=== PATIENT | female | born 1940 | race Caucasian/White ===

== ENCOUNTER 2017-01-27 09:51 | Outpatient (CLI) | payer MEDICARE, OTHER | END 2017-01-27 09:52 | disposition critical access hospital (66) | LOC: EMS 09:51 | PROVIDERS: ATTEND Surgery | DX: R41.82 Altered mental status, unspecified (principal) | CPT/HCPCS: A0425; A0427 ==

== ENCOUNTER 2017-01-27 10:06 | Emergency (ER) | payer MEDICARE, OTHER ==
[2017-01-27] MEDS ORDERED: ONDANSETRON 4 MG/2 ML VIAL IVP STA (10:15)
[2017-01-27] MEDS ORDERED: SODIUM CHLORIDE 0.9% 1,000 ML IV ONE (10:15)
--- NOTE | 2017-01-27 10:18 | ED Physician Documentation ---
History of Present Illness - Stated complaint Stated Complaint: ALOC - Chief complaint Chief Complaint: Neuro - Additonal information Additional information: hx from EMS 76 female suffers from fibromyALGIA TAKES OXYCODONE this AM her gave her a dose of a black substance that a friend bought at the marijuana store and she promptly developed AMS and NV no fall or injury Review of Systems Constitutional: denies: Fever Cardiac: denies: Chest pain / pressure Respiratory: denies: Cough GI: reports: Vomiting. denies: Abdominal Pain Neurologic: reports: Confused, Altered mental status Endocrine: denies: Easy bruising / bleeding Immunocompromised: denies: Immunocompromised PD PAST MEDICAL HISTORY - Past Medical History Cardiovascular: None Respiratory: Asthma Neuro: None Endocrine/Autoimmune: None Musculoskeletal: Osteoarthritis, Fibromyalgia - Past Surgical History Past Surgical History: Yes HEENT: Cataracts - Present Medications Home Medications: Ambulatory Orders Medication Instructions Recorded Confirmed Fluticasone Propionate [Flovent 1 inh INH DAILY 05/08/15 01/27/17 Diskus] Fluticasone [Flonase] 1 spray DANNY BID 05/08/15 01/27/17 Hydrochlorothiazide 25 mg PO DAILY 05/08/15 01/27/17 Lisinopril 10 mg PO DAILY 05/08/15 01/27/17 Methocarbamol [Robaxin] 500 mg PO Q6H PRN #25 tablet 05/08/15 01/27/17 Salmeterol Xinafoate [Serevent 1 inhaler ORAL DAILY 05/08/15 01/27/17 Diskus] Zolpidem [Ambien] 5 mg PO DAILY 05/08/15 01/27/17 Ciprofloxacin HCl [Cipro] 500 mg PO BID #14 tablet 05/14/15 01/27/17 oxyCODONE/ACET 5/325 [Percocet 5 1 tab ORAL Q6HR PRN 05/14/15 01/27/17 mg/325 mg] - Allergies Allergies/Adverse Reactions: Allergies Allergy/AdvReac Type Severity Reaction Status Date / Time amoxicillin trihydrate * Allergy Hives Verified 05/14/15 09:22 [From Augmentin] potassium clavulanate * Allergy Hives Verified 05/14/15 09:22 [From Augmentin] - Social History Does the pt smoke?: No Smoking Status: Never smoker Does the pt drink ETOH?: No Does the pt have substance abuse?: No - Immunizations Immunizations are current?: Yes PD ED PE NORMAL - Vitals Vital signs reviewed: Yes - General General: Other (very drowsy, irritable, uncooperative, occ jerking movements) - HEENT HEENT: PERRL (2) - Neck Neck: Supple, no meningeal sign - Cardiac Cardiac: RRR - Respiratory Respiratory: No respiratory distress, Clear bilaterally - Abdomen Abdomen: Soft, Non tender - Derm Derm: Normal color - Neuro Neuro: Other (wekaly moves all ext, wont follow commands or answer questions for better neuro exam). No: Alert and oriented X 3 Results - Vitals Vitals: Vital Signs - 24 hr 01/27/17 01/27/17 01/27/17 10:07 10:50 12:16 Temperature 36.1 C L Heart Rate 89 62 76 Respiratory 18 18 16 Rate Blood Pressure 149/81 H 138/75 H 137/74 H O2 Saturation 95 94 100 Oxygen O2 Source Nasal cannula - EKG (time done) 1047 Rate: Rate (enter#) (62) Rhythm: NSR [place]: Normal Intervals: Normal [place] Ischemia: Non specific changes (diffusely slightly flat T waves) Other comments: Other comments (NSR nl QRS nl QT (reason for getting EKG in tox setting)) - Labs Labs: Laboratory Tests 01/27/17 01/27/17 10:34 10:34 WBC 7.6 RBC 4.22 Hgb 13.1 Hct 38.2 MCV 90.5 MCH 31.1 H MCHC 34.4 RDW 13.1 Plt Count 376 MPV 6.9 L Neut # 4.1 Lymph # 2.6 [place] # 0.7 Eos # 0.1 Baso # 0.0 Absolute Nucleated RBC 0.00 Nucleated RBC % 0.0 Sodium 132 L Potassium 2.8 L Chloride 94 L Carbon Dioxide 27 Anion Gap 11.0 BUN 13 Creatinine 0.9 Estimated GFR (MDRD) 61 L Glucose 137 H Calcium 8.8 Salicylates < 6.0 Acetaminophen < 10 L Ethyl Alcohol < 5.0 PD MEDICAL DECISION MAKING - ED course ED course: family called marijuana store and learned the meds was a combo or marijuana deriv and nurse called poison control who advised sx are as expected for this ingestion and tx was simply supportive care and obs - pt given zofran and observed and got better labs reviewed and fine except low K which was repleted and low Na which is not new Departure - Departure Disposition: 01 Home, Self Care Clinical Impression: Medication reaction Qualifiers: Encounter type: initial encounter Qualified Code(s): T88.7XXA - Unspecified adverse effect of drug or medicament, initial encounter Condition: Good Follow-Up: Suresh Gary MD [Primary Care Provider] - Comments: You suffered an adverse reaction the drug that you took The case was discussed with poison control and no further treatment is needed beyond observing you until the symptoms cleared. Your labs were fine except for low potassium which we replaced - please follow up with your PMD to recheck your potassium next week
[2017-01-27 10:39] LABS: BASOPHILS % (AUTO) 0.6 %; EOSINOPHILS # (AUTO) 0.1 10^3/uL (0.0-0.7); EOSINOPHILS % (AUTO) 0.9 %; HCT - HEMATOCRIT 38.2 % (37.0-47.0); HGB - HEMOGLOBIN 13.1 g/dL (12.0-16.0); LYMPHOCYTES # (AUTO) 2.6 10^3/uL (1.5-3.5); LYMPHOCYTES % (AUTO) 34.3 %; MEAN CORPUSCULAR HEMOGLOBIN 31.1 pg (27.0-31.0); MEAN CORPUSCULAR HGB CONC 34.4 g/dL (32.0-36.0); MEAN CORPUSCULAR VOLUME 90.5 fL (81.0-99.0); MEAN PLATELET VOLUME 6.9 fL (7.9-10.8); MONOCYTES # (AUTO) 0.7 10^3/uL (0.0-1.0); MONOCYTES % (AUTO) 9.7 %; NEUTROPHILS # (AUTO) 4.1 10^3/uL (1.5-6.6); NEUTROPHILS % (AUTO) 54.5 %; RED BLOOD COUNT 4.22 10^6/uL (4.20-5.40); RED CELL DISTRIBUTION WIDTH 13.1 % (12.0-15.0); UNCORRECTED WHITE BLOOD COUNT 7.6 x10^3/uL; WHITE BLOOD COUNT 7.6 x10^3/uL (4.8-10.8)
[2017-01-27 10:53] LABS: ACETAMINOPHEN < 10 ug/mL (10-30); BUN - BLOOD UREA NITROGEN 13 mg/dL (6-20); CALCIUM 8.8 mg/dL (8.5-10.3); CARBON DIOXIDE - CO2 27 mmol/L (21-32); CHLORIDE 94 mmol/L (101-111); CREATININE 0.9 mg/dL (0.4-1.0); GFR - MDRD 61 (>89); GLUCOSE 137 mg/dL (70-100); POTASSIUM 2.8 mmol/L (3.5-5.0); SALICYLATE < 6.0 mg/dL; SODIUM 132 mmol/L (135-145)
[2017-01-27 12:17] VITALS: BP 137/74
[2017-01-27] MEDS ORDERED: POTASSIUM CHLORIDE 20 MEQ TABLET PO STA (12:43)
[2017-01-27] MEDS ORDERED: POTASSIUM BICARB 25 MEQ TABLET PO STA (12:51)
== END 2017-01-27 13:13 | disposition home or self-care (01) ==
LOC: EDUNIT# → ED 10:06
DX: R41.82 Altered mental status, unspecified (principal); T50.995A Adverse effect of other drugs, medicaments and biological substances, initial encounter; Y92.019 Unspecified place in single-family (private) house as the place of occurrence of the external cause; M79.7 Fibromyalgia; M19.90 Unspecified osteoarthritis, unspecified site; J45.909 Unspecified asthma, uncomplicated; E87.6 Hypokalemia
CPT/HCPCS: 36415; 80048; 80307; 85025; 93005; 96361; 96374; 99283; 99284; A9270; G0480; 80306; 80320; 80329; 81001; 81003; 87086

== ENCOUNTER 2017-05-06 05:47 | Outpatient (CLI) | payer MEDICARE, OTHER | END 2017-05-06 05:48 | disposition critical access hospital (66) | LOC: EMS 05:47 | PROVIDERS: ATTEND Surgery | DX: R05 Cough (principal) | CPT/HCPCS: A0425; A0429 ==

== ENCOUNTER 2017-05-06 06:02 | Inpatient (IN) | payer MEDICARE, OTHER ==
[2017-05-06] MEDS ORDERED: DEXAMETHASONE 10 MG/ML VIAL PO STA (06:39)
[2017-05-06] MEDS ORDERED: guaiFENesin/DEXTROMETHORPHAN 10 ML UDC PO STA (06:39)
[2017-05-06] MEDS ORDERED: BENZONATATE 100 MG CAPSULE PO STA (06:39)
[2017-05-06] MEDS ORDERED: ALBUTEROL NEB 2.5 MG/3 ML INH STA (06:39)
--- NOTE | 2017-05-06 06:44 | ED Physician Documentation ---
History of Present Illness - Stated complaint Stated Complaint: COUGH - Chief complaint Chief Complaint: Resp - Additonal information Additional information: hx from pt 76 f has COPD states dx with pna 3 d ago at PMD - pt is having a hard time recalling details - she does not recall if she had a CXR, she does not recall the name of the antibiotic she was started on, she does not recall if she is on oral steroids, she tells me that she is using her albuterol every 4 hr but her last use was last night states her SO will be arriving with more info to ER BIBA for cough and SOA maybe a fever no NV no leg edema Review of Systems Constitutional: reports: Fatigue. denies: Fever Throat: denies: Sore throat Cardiac: denies: Chest pain / pressure Respiratory: reports: Dyspnea, Cough GI: denies: Abdominal Pain, Nausea, Vomiting Musculoskeletal: denies: Extremity swelling Neurologic: denies: Generalized weakness Endocrine: denies: Easy bruising / bleeding Immunocompromised: denies: Immunocompromised PD PAST MEDICAL HISTORY - Past Medical History Cardiovascular: None Respiratory: Asthma Neuro: None Endocrine/Autoimmune: None Musculoskeletal: Osteoarthritis, Fibromyalgia - Past Surgical History Past Surgical History: Yes HEENT: Cataracts - Present Medications Home Medications: Ambulatory Orders Medication Instructions Recorded Confirmed Fluticasone [Flonase] 2 spray DANNY DAILY PRN 05/08/15 05/06/17 Salmeterol Xinafoate [Serevent 1 puffs INH DAILY 05/08/15 05/06/17 Diskus] oxyCODONE/ACET 5/325 [Percocet 5 1 tab ORAL Q6HR PRN 05/14/15 05/06/17 mg/325 mg] Albuterol Sulfate [Proair Hfa 2 puffs INH Q4H PRN 05/06/17 05/06/17 Inhaler] Esomeprazole Magnesium [Nexium] 20 mg PO QDAC 05/06/17 05/06/17 Felodipine [Felodipine ER] 5 mg PO DAILY 05/06/17 05/06/17 Fluticasone 220 Mcg [Flovent] 2 puffs INH BID 05/06/17 05/06/17 Losartan Potassium [Losartan 100 mg PO DAILY 05/06/17 05/06/17 Potassium] Montelukast Sodium 10 mg PO QPM 05/06/17 05/06/17 hydroCHLOROthiazide [Hydrodiuril] 25 mg PO DAILY 05/06/17 05/06/17 - Allergies Allergies/Adverse Reactions: Allergies Allergy/AdvReac Type Severity Reaction Status Date / Time amoxicillin trihydrate * Allergy Hives Verified 05/06/17 06:09 [From Augmentin] potassium clavulanate * Allergy Hives Verified 05/06/17 06:09 [From Augmentin] codeine AdvReac Intermediate Nausea Verified 05/06/17 17:26 - Social History Does the pt smoke?: No Smoking Status: Never smoker Does the pt drink ETOH?: No Does the pt have substance abuse?: No - Immunizations Immunizations are current?: Yes PD ED PE NORMAL - Vitals Vital signs reviewed: Yes - General General: Alert and oriented X 3 - Neck Neck: Supple, no meningeal sign - Cardiac Cardiac: RRR - Respiratory Respiratory: Other (incessant coarse deep wet cough, rachael wheeze, sat 89% on 2 L with coughing spells, 93% otherwise) - Abdomen Abdomen: Soft, Non tender - Back Back: No CVA TTP - Derm Derm: Normal color - Extremities Extremities: No edema, No calf tenderness / cord Results - Vitals Vitals: Vital Signs - 24 hr 05/06/17 05/06/17 05/06/17 06:04 07:05 08:17 Temperature 37.3 C Heart Rate 79 81 86 Respiratory 20 26 H 24 Rate Blood Pressure 139/65 H 118/58 L O2 Saturation 91 L 92 05/06/17 05/06/17 05/06/17 08:54 09:30 10:08 Temperature Heart Rate 94 77 105 H Respiratory 20 22 Rate Blood Pressure 127/66 O2 Saturation 93 98 05/06/17 12:13 Temperature 36.4 C L Heart Rate 79 Respiratory 20 Rate Blood Pressure 130/65 O2 Saturation 90 L Oxygen O2 Source Room air Oxygen Flow Rate 2 - Labs Labs: Laboratory Tests 05/06/17 05/06/17 05/06/17 09:04 09:04 09:10 WBC 6.3 RBC 4.15 L Hgb 13.0 Hct 37.0 MCV 89.0 MCH 31.4 H MCHC 35.3 RDW 13.4 Plt Count 238 MPV 6.9 L Neut # 5.6 Lymph # 0.4 L [place] # 0.3 Eos # 0.0 Baso # 0.0 Absolute Nucleated RBC 0.01 Nucleated RBC % 0.1 Bld Gas Analysis Time 0910 Sample Site RIGHT RADIAL ABG pH 7.49 H ABG pCO2 38 ABG pO2 94 ABG HCO3 28.2 H ABG Total CO2 29.3 H ABG O2 Saturation 97 ABG Base Excess 4.7 H [place] Test POSITIVE O2 Delivery Device NASAL CANNULA O2 Liters/Min 3.50 Sodium 123 L Potassium 2.9 L Chloride 86 L Carbon Dioxide 26 Anion Gap 11.0 BUN 18 Creatinine 1.1 H Estimated GFR (MDRD) 48 L Glucose 122 H Calcium 8.5 Influenza A (Rapid) Influenza B (Rapid) Influenza Types A,B Ag 05/06/17 10:10 WBC RBC Hgb Hct MCV MCH MCHC RDW Plt Count MPV Neut # Lymph # [place] # Eos # Baso # Absolute Nucleated RBC Nucleated RBC % Bld Gas Analysis Time Sample Site ABG pH ABG pCO2 ABG pO2 ABG HCO3 ABG Total CO2 ABG O2 Saturation ABG Base Excess [place] Test O2 Delivery Device O2 Liters/Min Sodium Potassium Chloride Carbon Dioxide Anion Gap BUN Creatinine Estimated GFR (MDRD) Glucose Calcium Influenza A (Rapid) Negative Influenza B (Rapid) POSITIVE H Influenza Types A,B Ag + H - Rads (name of study) CXR Radiology: See rad report (linear LLL opacity unchnaged from prior c/w scarring or atelectasis and not pna) PD MEDICAL DECISION MAKING - ED course ED course: despite 3 nebs and steroids pt still hypoxic even at rest and still tight and wheezy SO is here - she is on zmax, she was not on outpt steroids rec admit t is reluctant will try another triple neb pt seems confused - will check PCO2 added on baseline labs for anticipated admit - K low and repleted - Na low - could be 2/2 lung dz but new from Dec and with AMS concerning still wheezing and hypoxic after 6 nebs will admit paged hospitalist at 11 AM Departure - Departure Disposition: 66 [facility] DC/Xfer Clinical Impression: Hypoxia, Bronchitis, Hyponatremia, Hypokalemia COPD (chronic obstructive pulmonary disease) Qualifiers: COPD type: COPD with acute exacerbation Qualified Code(s): J44.1 - Chronic obstructive pulmonary disease with (acute) exacerbation Condition: Fair Discharge Date/Time: 05/06/17 12:50
[2017-05-06] MEDS ORDERED: CHERRY SYRUP 10 ML UDC PO ONE (06:52)
--- NOTE | 2017-05-06 07:19 | XRAY Report ---
EXAM: CHEST RADIOGRAPHY EXAM DATE: 05/06/2017 07:03 AM. CLINICAL HISTORY: COUGH. COMPARISON: 02/17/2016. TECHNIQUE: 2 views. FINDINGS: Lungs/Pleura: Linear left lower lobe opacity again seen. No vascular congestion or consolidation. No pneumothorax. No pleural effusions. Mediastinum: Heart size upper normal. Aorta is tortuous. Aortic atherosclerosis. Other: Degenerative changes of the thoracic spine. IMPRESSION: 1. Linear left lower lobe opacity favoring scar/atelectasis without significant change compared to . 2. No new acute disease. [facility] Referring Provider Line: [phone] SITE ID: [id number]
[2017-05-06 09:09] LABS: BASOPHILS % (AUTO) 0.2 %; LYMPHOCYTES # (AUTO) 0.4 10^3/uL (1.5-3.5); LYMPHOCYTES % (AUTO) 6.1 %; MEAN CORPUSCULAR HEMOGLOBIN 31.4 pg (27.0-31.0); MEAN CORPUSCULAR HGB CONC 35.3 g/dL (32.0-36.0); MEAN PLATELET VOLUME 6.9 fL (7.9-10.8); MONOCYTES # (AUTO) 0.3 10^3/uL (0.0-1.0); MONOCYTES % (AUTO) 4.1 %; NEUTROPHILS # (AUTO) 5.6 10^3/uL (1.5-6.6); NEUTROPHILS % (AUTO) 89.6 %; PLT - PLATELET COUNT 238 10^3/uL (130-450); RED BLOOD COUNT 4.15 10^6/uL (4.20-5.40); RED CELL DISTRIBUTION WIDTH 13.4 % (12.0-15.0); WHITE BLOOD COUNT 6.3 x10^3/uL (4.8-10.8)
[2017-05-06 09:17] LABS: CALCIUM 8.5 mg/dL (8.5-10.3); CREATININE 1.1 mg/dL (0.4-1.0)
[2017-05-06 09:21] LABS: ABG BASE EXCESS 4.7 mmol/L (-2.0-3.0); ABG HCO3 28.2 mmol/L (22.0-26.0); ABG OXYGEN SATURATION 97 % (94-98); ABG PCO2 38 mmHg (34-45); ABG PH 7.49 (7.35-7.45); ABG PO2 94 mmHg (80-100); ABG TCO2 29.3 MMOL/L (21.0-29.0); ALLEN TEST POSITIVE
[2017-05-06] MEDS ORDERED: LEVALBUTEROL 1.25 MG/3 ML NEB INH STA (09:23)
[2017-05-06] MEDS ORDERED: POTASSIUM CHLORIDE 20 MEQ TABLET PO STA (10:10)
[2017-05-06] MEDS: ALBUTEROL NEB 2.5 MG/3 ML INH STA ×2 (10:46→14:37)
[2017-05-06] MEDS ORDERED: HYDROmorphone 1 MG/ML CARPUJECT IVP PRN (12:20)
[2017-05-06] MEDS ORDERED: TEMAZEPAM 15 MG CAPSULE PO PRN (12:20)
[2017-05-06] MEDS ORDERED: SODIUM CHLORIDE FLUSH 0.9% 10 ML SYRINGE IVP PRN (12:20)
[2017-05-06] MEDS ORDERED: MORPHINE 2 MG/ML SYRINGE IVP PRN (12:20)
[2017-05-06] MEDS ORDERED: ACETAMINOPHEN 325 MG TABLET PO PRN (12:20)
[2017-05-06] MEDS ORDERED: ONDANSETRON 4 MG/2 ML VIAL IVP PRN (12:20)
[2017-05-06] MEDS ORDERED: FLUTICASONE NASAL SPRAY NAS PRN (12:26)
[2017-05-06] MEDS ORDERED: oxyCOD/ACETAMIN 5 MG/325 MG TABLET PO PRN (12:26)
[2017-05-06] MEDS ORDERED: guaiFENesin/CODEINE 5 ML UDC PO PRN (12:34)
[2017-05-06] MEDS ORDERED: LEVALBUTEROL 1.25 MG/3 ML NEB INH PRN (12:46)
[2017-05-06] MEDS ORDERED: LEVALBUTEROL 1.25 MG/3 ML NEB INH SCH (13:00)
[2017-05-06] MEDS: BUDESONIDE 0.5 MG/2 ML NEB INH SCH ×2 (13:24→20:31)
[2017-05-06] MEDS: LEVALBUTEROL 1.25 MG/3 ML NEB INH SCH ×3 (13:24→20:31)
[2017-05-06] MEDS: guaiFENesin 600 MG TABLET PO SCH ×2 (14:03→21:10)
[2017-05-06] MEDS: OSELTAMIVIR 75 MG CAPSULE PO SCH ×2 (14:04→21:10)
[2017-05-06] MEDS: methylPREDNISolone SUCCINATE 40 MG/ML VIAL IVP SCH ×2 (14:05→21:13)
[2017-05-06] MEDS: SODIUM CHLORIDE 0.9% 1,000 ML IV SCH (14:09)
--- NOTE | 2017-05-06 16:53 | HISTORY & PHYSICAL EXAMINATION ---
DATE OF SERVICE: 05/06/2017 Physician: Namrata Benavides MD HISTORY OF PRESENT ILLNESS: This is a 76-year-old white female with a history of hypertension, fibromyalgia, and chronic obstructive disease/asthma. The patient also gets frequent sinusitis, according to the daughter. The patient is admitted with 3 to 4-day history of a wet but nonproductive cough, shortness of breath, and fever after returning from a trip to [place]. She traveled with her , and the also had a mild URI plus diarrhea. The patient came to the emergency room because of severe shortness of breath. The patient has been using her inhaler every 4 hours for a day. She forgot to tell the emergency room that she also has had diarrhea for a few days. In the emergency room, she received oral steroids and 6 nebulizer treatments and continued to be short of breath at rest, wheezing and was "tight ", and is being admitted for respiratory distress. PAST MEDICAL HISTORY: Chronic obstructive pulmonary disease/asthma on several inhalers, but not on home oxygen; history of frequent sinusitis, history of fibromyalgia, and hypertension. REVIEW OF SYSTEMS: A comprehensive review of systems was performed, and the pertinent positives are above. In addition, the daughter states there was approximately 1 year where she had recurrent syncope, but this is now resolved. ALLERGIES 1. AMOXICILLIN. 2. POTASSIUM CLAVULANATE. MEDICATIONS 1. Nexium 20 mg p.o. daily. 2. ProAir inhaler every 4 hours p.r.n. 3. Flovent 2 puffs b.i.d. 4. Serevent Diskus 1 puff daily. 5. Flonase nasal spray daily p.r.n. 6. Percocet q.6 hours p.r.n. fibromyalgia pain. 7. HCTZ 25 mg daily. 8. Montelukast 10 mg p.o. every evening. 9. Losartan 100 mg p.o. daily. 10. Felodipine 5 mg p.o. daily. SOCIAL HISTORY: The patient is a nonsmoker, who quit 40 years ago, drinks rare alcohol, uses no illicit drugs. She lives at home with her . 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 FAMILY HISTORY: No inherited diseases. PHYSICAL EXAMINATION GENERAL: She is in mild respiratory distress. In the emergency room, she was in severe respiratory distress with a respiratory rate of 26. Blood pressure 139/65, pulse of 79-100 in sinus rhythm, afebrile, and room air saturation 91%. HEENT: Exam reveals hoarseness of her voice. Moist oral mucosa. NECK: No JVD or carotid bruits. LUNGS: Diffusely diminished breath sounds with prolonged expiratory phase and scattered wheezes, no rales. HEART: Sounds distant. ABDOMEN: Soft, positive bowel sounds. EXTREMITIES: No clubbing, cyanosis, or edema. NEUROLOGIC: Intact grossly. LABORATORY/DATA Sodium 123, potassium 2.9, BUN 18, creatinine 1.1. No liver tests or calcium or magnesium were done. White blood count 6.3 with no left shift, hemoglobin 13, platelet count normal at 238. No INR was done. Serology shows positive influenza B. Blood gas had a pH of 7.49, pCO2 of 38, pO2 of 94. Chest x-ray showed left base atelectasis or scar and no acute disease and heart size is upper limits of normal. EKG: Normal sinus rhythm at a rate of 80, poor R-wave progression, diffusely borderline flat T waves. There is no old EKG for comparison. IMPRESSION/DIAGNOSES 1. Chronic obstructive pulmonary disease exacerbation. 2. Acute bronchitis. 3. Influenza B. 4. Diarrhea after a trip to [place]. 5. Tachycardia after albuterol, which has now improved. 6. Hypertension. 7. Hyponatremia. 8. Confusion. 9. Fibromyalgia. PLAN 1. Admit the patient on telemetry. 2. Obtain sputum cultures and blood cultures given the fever at home. 3. Start the patient on empiric antibiotics to cover bronchitis and especially from a sinus source; therefore, Zithromax and Clindamycin will be started. 4. Start Tamiflu for the influenza and follow her liver tests. 5. Begin IV steroids, nebulizers with Xopenex and Budesonide, use Mucinex and Robitussin treatments. 6. Continue with her blood pressure medications, but stop the HCTZ; and begin low-dose normal saline to correct the hyponatremia. Replace her potassium. 7. Begin clear liquid diet and advance if the diarrhea will tolerate. Culture of the diarrhea, and begin Imodium or Florastor if there are no bacterial growths or C. diff. CODE STATUS: DNR. DEEP VENOUS THROMBOSIS PROPHYLAXIS: Lovenox. ATTESTATION: The patient is expected to be discharged or transferred to another facility within 96 hours: Yes. TD: 05/06/2017 16:30 DANNI
[2017-05-06] MEDS: SODIUM CHLORIDE FLUSH 0.9% 10 ML SYRINGE IVP SCH (19:57)
[2017-05-06] MEDS: CLINDAMYCIN 600 MG/50 ML 50 ML IV SCH (19:57)
[2017-05-06] MEDS: AZITHROMYCIN INJ 500 MG in SODIUM CHLORIDE 0.9% 250 ML IV SCH (21:10)
[2017-05-06] MEDS: POTASSIUM CHLOR 10 MEQ/100 ML 10 MEQ/100 ML BAG IV SCH (22:35)
[2017-05-07] MEDS: POTASSIUM CHLOR 10 MEQ/100 ML 10 MEQ/100 ML BAG IV SCH ×2 (00:35→09:27)
[2017-05-07] MEDS ORDERED: POTASSIUM CHLORIDE 20 MEQ TABLET PO SCH (01:00)
[2017-05-07] MEDS: SODIUM CHLORIDE FLUSH 0.9% 10 ML SYRINGE IVP SCH ×4 (01:55→21:24)
[2017-05-07] MEDS: CLINDAMYCIN 600 MG/50 ML 50 ML IV SCH ×3 (02:14→17:35)
[2017-05-07 05:45] LABS: HGB - HEMOGLOBIN 11.9 g/dL (12.0-16.0); LYMPHOCYTES # (AUTO) 0.6 10^3/uL (1.5-3.5); LYMPHOCYTES % (AUTO) 8.1 %; MEAN CORPUSCULAR HEMOGLOBIN 30.2 pg (27.0-31.0); MEAN CORPUSCULAR HGB CONC 33.6 g/dL (32.0-36.0); MEAN CORPUSCULAR VOLUME 89.9 fL (81.0-99.0); MEAN PLATELET VOLUME 7.1 fL (7.9-10.8); MONOCYTES # (AUTO) 0.7 10^3/uL (0.0-1.0); MONOCYTES % (AUTO) 9.3 %; NEUTROPHILS # (AUTO) 6.2 10^3/uL (1.5-6.6); NEUTROPHILS % (AUTO) 82.6 %; PLT - PLATELET COUNT 225 10^3/uL (130-450); RED BLOOD COUNT 3.94 10^6/uL (4.20-5.40); RED CELL DISTRIBUTION WIDTH 13.5 % (12.0-15.0); WHITE BLOOD COUNT 7.5 x10^3/uL (4.8-10.8)
[2017-05-07 05:56] LABS: ALBUMIN 3.3 g/dL (3.2-5.5); ALBUMIN/GLOBULIN RATIO 1.2 (1.0-2.2); BILIRUBIN,TOTAL 0.5 mg/dL (0.2-1.0); CALCIUM 8.3 mg/dL (8.5-10.3); CREATININE 0.7 mg/dL (0.4-1.0); TOTAL PROTEIN 6.1 g/dL (6.7-8.2)
[2017-05-07] MEDS: SODIUM CHLORIDE 0.9% 1,000 ML IV SCH ×2 (06:10→07:22)
[2017-05-07] MEDS: methylPREDNISolone SUCCINATE 40 MG/ML VIAL IVP SCH ×3 (06:20→21:24)
[2017-05-07] MEDS: PANTOPRAZOLE 40 MG TABLET PO SCH (06:21)
[2017-05-07] MEDS: LEVALBUTEROL 1.25 MG/3 ML NEB INH SCH ×3 (07:25→19:15)
[2017-05-07] MEDS: BUDESONIDE 0.5 MG/2 ML NEB INH SCH ×2 (07:25→19:15)
--- NOTE | 2017-05-07 07:32 | XRAY Preliminary Report ---
Exam: XR CHEST 1 VIEW X-RAY IMPRESSION: Suboptimal inspiratory effort. No pneumonia, CHF further demonstrated cause for shortness of breath. [facility] SITE ID: [id number]
--- NOTE | 2017-05-07 07:37 | XRAY Report ---
EXAM: CHEST RADIOGRAPHY, PORTABLE ONE VIEW EXAM DATE: 05/07/2017 06:37 AM. CLINICAL HISTORY: 76-year-old female with shortness of breath. COMPARISON: Two-view chest 05/06/2017 and previous. TECHNIQUE: 0627 hour AP upright portable view. FINDINGS: Lungs/Pleura: No focal opacities evident. No pleural effusion. No pneumothorax. Decreased inspiratory effort from previous study. Mediastinum: Within exam limitations, the cardiomediastinal contour is normal. No pulmonary vascular congestion or adenopathy. Other: Trachea is midline. Osseous structures are unremarkable. Moderate elevation right hemidiaphragm, chronic and stable. IMPRESSION: Suboptimal inspiratory effort. No pneumonia, CHF or demonstrated cause for shortness of b reath. [facility] Referring Provider Line: [phone] SITE ID: [id number]
[2017-05-07] MEDS: FELODIPINE ER 2.5 MG TABLET PO SCH (08:56)
[2017-05-07] MEDS: OSELTAMIVIR 75 MG CAPSULE PO SCH ×2 (08:57→21:25)
[2017-05-07] MEDS: LOSARTAN 50 MG TABLET PO SCH (08:57)
[2017-05-07] MEDS: POTASSIUM CHLORIDE 20 MEQ TABLET PO SCH ×2 (08:57→21:25)
[2017-05-07] MEDS: ENOXAPARIN 40 MG/0.4 ML SYRINGE SUBQ SCH (08:58)
[2017-05-07] MEDS: guaiFENesin 600 MG TABLET PO SCH ×2 (08:58→21:25)
[2017-05-07] MEDS: POLYETHYLENE GLYCOL 3350 17 GM PACKET PO SCH (08:59)
[2017-05-07] MEDS ORDERED: FAMOTIDINE 20 MG TABLET PO SCH (09:00)
--- NOTE | 2017-05-07 13:02 | PROVIDER PROGRESS NOTE ---
Assessment/Plan - Problem List (1) Asthmatic bronchitis with acute exacerbation Qualifiers: Asthma severity: unspecified severity Assessment/Plan: The patient states she was never told she has COPD. She describes undergoing PFTs 20 years ago and was told she had Asthma. Her cough and wheezing are better, she is not SOB at rest and c/o shakiness from the nebs. Will decrease Xopenex to bid, continue steroid nebs and iv, tomorrow transition to Medrol dose Star for DCh. (2) Travelers' diarrhea Assessment/Plan: Slightly less liquid BMs, but still nauseated and anorexic. Will advance diet from clears when possible. Awaiting stool eval for C diff and bacterial cultures. Pt no longer hypokalemic, due to stool fluid losses, after replacement. (3) Hyponatremia Assessment/Plan: Improved and Pt no longer confused. She was able to give me clear answers about her past PFTs and her daughter's career, etc. (4) Influenza B Assessment/Plan: Continue Tamiflu for a 7 day course, watching LFTs (no LFTs done at admission, til CMP this am). Probable DCh tomorrow. - Current Meds Current Meds: Current Medications Generic Name Dose Route Start Last Admin Trade Name Freq PRN Reason Stop Dose Admin Budesonide 0.5 mg 05/06/17 13:00 05/07/17 07:25 Pulmicort INH 0.5 mg RTBID KATIE Administration Enoxaparin Sodium 40 mg 05/07/17 09:00 05/07/17 08:58 Lovenox SUBQ 40 mg DAILY KATIE Administration Felodipine 5 mg 05/07/17 09:00 05/07/17 08:56 Plendil PO 5 mg DAILY KATIE Administration Guaifenesin 600 mg 05/06/17 13:00 05/07/17 08:58 Mucinex PO 600 mg BID KATIE Administration Sodium Chloride 1,000 mls @ 60 mls/hr 05/06/17 13:00 05/07/17 07:22 Normal Saline 0.9% IV 60 mls/hr .[id number] KATIE Administration Azithromycin 500 mg/ Sodium 250 mls @ 250 mls/hr 05/06/17 17:00 05/06/17 22: 10 Chloride IV Infused Q24H KATIE Infusion Clindamycin Phosphate 50 mls @ 100 mls/hr 05/06/17 18:00 05/07/17 11:03 Cleocin 600 Mg/50 Ml IV Infused Q8H KATIE Infusion Losartan Potassium 100 mg 05/07/17 09:00 05/07/17 08:57 Cozaar PO 100 mg DAILY KATIE Administration Methylprednisolone 40 mg 05/06/17 14:00 05/07/17 06:20 Solu-Medrol (40mg Vial) IVP 40 mg TID KATIE Administration Oseltamivir Phosphate 75 mg 05/06/17 12:32 05/07/17 08:57 Tamiflu PO 75 mg BID KATIE Administration Pantoprazole Sodium 40 mg 05/07/17 07:00 05/07/17 06:21 Protonix PO 40 mg QDAC KATIE Administration Polyethylene Glycol 17 gm 05/07/17 09:00 05/07/17 08:59 Miralax PO Not Given DAILY KATIE Potassium Chloride 20 meq 05/07/17 09:00 05/07/17 08:57 K-Dur PO 20 meq BID KATIE Administration Sodium Chloride 10 ml 05/06/17 17:00 05/07/17 09:28 Normal Saline Flush 0.9% IVP Not Given 0100,0900,1700 KATIE - Lab Result Fish Bone Diagrams: 05/07/17 05:25 05/07/17 05:25 - Additional Planning My Orders: My Active Orders 05/06/17 12:26 Fluticasone [Flonase] 2 sprays DANNY DAILY PRN oxyCODONE/ACET 5/325 [Percocet 5 mg/325 mg] 1 tab PO Q6HR PRN 05/06/17 12:32 Oseltamivir [Tamiflu] 75 mg PO BID 05/06/17 12:46 Levalbuterol [Xopenex] 1.25 mg INH Q2H PRN 05/06/17 12:59 Blood Culture [CULTURE, BLOOD #1] [RM] Stat 05/06/17 13:00 Budesonide [Pulmicort] 0.5 mg INH RTBID Sodium Chloride 0.9% [Normal Saline 0.9%] 1,000 ml IV 60 mls/hr guaiFENesin [Mucinex] 600 mg PO BID 05/06/17 13:24 RT [Nebulizer/MDI Tx.] [RC] .BID/ QID/ Q2 PRN 05/06/17 13:42 Blood Culture [CULTURE, BLOOD #2] [RM] Stat 05/06/17 13:58 CUL, RESPIRATORY [RM] Routine 05/06/17 14:00 methylPREDNISolone SUCCINATE [SOLU-Medrol (40MG VIAL)] 40 mg IVP TID 05/06/17 17:00 Azithromycin Inj [Zithromax Inj] 500 mg Sodium Chloride 0.9% [Normal Saline 0.9%] 250 ml IV Q24H 05/06/17 18:00 Clindamycin 600 mg/50 ml [Cleocin 600 mg/50 ml] 50 ml IV Q8H 05/07/17 07:00 Pantoprazole [Protonix] 40 mg PO QDAC 05/07/17 09:00 Felodipine [Plendil] 5 mg PO DAILY Losartan [Cozaar] 100 mg PO DAILY 05/07/17 21:00 Levalbuterol [Xopenex] 1.25 mg INH BID 05/07/17 Breakfast DIET [Clear Liquid Diet] [DIET] Subjective - Subjective Patient Reports: Feeling Better, Diarrhea, Nausea, Other (No SOB, less cough and wheezing.) Objective Vital Signs: Vital Signs - 24 hr 05/06/17 05/06/17 05/06/17 13:00 13:24 15:38 Temperature 36.8 C 36.8 C Heart Rate 86 Heart Rate [ 74 71 Brachial] Respiratory 22 22 20 Rate Blood Pressure 115/67 [Left Brachial artery] Blood Pressure 126/62 [Right Brachial artery] O2 Saturation 94 97 05/06/17 05/06/17 05/06/17 16:38 20:26 20:32 Temperature 37.2 C Heart Rate 80 70 Heart Rate [ 68 Brachial] Respiratory 20 20 20 Rate Blood Pressure 118/53 L [Left Brachial artery] Blood Pressure [Right Brachial artery] O2 Saturation 95 05/06/17 05/07/17 05/07/17 23:32 05:01 07:27 Temperature 36.9 C 36.9 C Heart Rate 68 Heart Rate [ 79 70 Brachial] Respiratory 20 22 22 Rate Blood Pressure 131/63 H 133/63 H [Left Brachial artery] Blood Pressure [Right Brachial artery] O2 Saturation 95 98 05/07/17 05/07/17 07:36 11:09 Temperature 36.7 C Heart Rate 76 Heart Rate [ 66 Brachial] Respiratory 19 20 Rate Blood Pressure 121/62 [Left Brachial artery] Blood Pressure [Right Brachial artery] O2 Saturation 94 Oxygen O2 Source Nasal cannula I&O (Last 24 Hrs): Intake and Output Totals x24h 05/05/17 05/06/17 05/07/17 23:59 23:59 23:59 Intake Total 800 1500 Balance 800 1500 General: Alert, Oriented x3 HEENT: Other (mucosa dry) Neck: Supple, No JVD Cardiovascular: Regular rate, No murmurs Respiratory: Other (diminished, but no wheezes or rales.) Abdomen: Soft, No tenderness Extremities: No edema - Results Results: Laboratory Results WBC 7.5 x10^3/uL (4.8-10.8) 05/07/17 05:25 RBC 3.94 10^6/uL (4.20-5.40) L 05/07/17 05:25 Hgb 11.9 g/dL (12.0-16.0) L 05/07/17 05:25 Hct 35.4 % (37.0-47.0) L 05/07/17 05:25 MCV 89.9 fL (81.0-99.0) 05/07/17 05:25 MCH 30.2 pg (27.0-31.0) 05/07/17 05:25 MCHC 33.6 g/dL (32.0-36.0) 05/07/17 05:25 RDW 13.5 % (12.0-15.0) 05/07/17 05:25 Plt Count 225 10^3/uL (130-450) 05/07/17 05:25 MPV 7.1 fL (7.9-10.8) L 05/07/17 05:25 Neut # 6.2 10^3/uL (1.5-6.6) 05/07/17 05:25 Lymph # 0.6 10^3/uL (1.5-3.5) L 05/07/17 05:25 Wright # 0.7 10^3/uL (0.0-1.0) 05/07/17 05:25 Eos # 0.0 10^3/uL (0.0-0.7) 05/07/17 05:25 Baso # 0.0 10^3/uL (0.0-0.1) 05/07/17 05:25 Absolute Nucleated RBC 0.00 x10^3/uL 05/07/17 05:25 Nucleated RBC % 0.0 /100WBC 05/07/17 05:25 Bld Gas Analysis Time 0905/06/17 09:10 Sample Site RIGHT RADIAL 05/06/17 09:10 ABG pH 7.49 (7.35-7.45) H 05/06/17 09:10 ABG pCO2 38 mmHg (34-45) 05/06/17 09:10 ABG pO2 94 mmHg (80-100) 05/06/17 09:10 ABG HCO3 28.2 mmol/L (22.0-26.0) H 05/06/17 09:10 ABG Total CO2 29.3 MMOL/L (21.0-29.0) H 05/06/17 09:10 ABG O2 Saturation 97 % (94-98) 05/06/17 09:10 ABG Base Excess 4.7 mmol/L (-2.0-3.0) H 05/06/17 09:10 Benedicto Test POSITIVE 05/06/17 09:10 O2 Delivery Device NASAL CANNULA 05/06/17 09:10 O2 Liters/Min 3.50 LPM 05/06/17 09:10 Sodium 128 mmol/L (135-145) L 05/07/17 05:25 Potassium 3.6 mmol/L (3.5-5.0) 05/07/17 05:25 Chloride 92 mmol/L (101-111) L 05/07/17 05:25 Carbon Dioxide 27 mmol/L (21-32) 05/07/17 05:25 Anion Gap 9.0 (6-13) 05/07/17 05:25 BUN 13 mg/dL (6-20) 05/07/17 05:25 Creatinine 0.7 mg/dL (0.4-1.0) 05/07/17 05:25 Estimated GFR (MDRD) 81 (>89) L 05/07/17 05:25 Glucose 153 mg/dL (70-100) H 05/07/17 05:25 Calcium 8.3 mg/dL (8.5-10.3) L 05/07/17 05:25 Total Bilirubin 0.5 mg/dL (0.2-1.0) 05/07/17 05:25 AST 46 IU/L (10-42) H 05/07/17 05:25 ALT 26 IU/L (10-60) 05/07/17 05:25 Alkaline Phosphatase 34 IU/L (42-121) L 05/07/17 05:25 Total Protein 6.1 g/dL (6.7-8.2) L 05/07/17 05:25 Albumin 3.3 g/dL (3.2-5.5) 05/07/17 05:25 Globulin 2.8 g/dL (2.1-4.2) 05/07/17 05:25 Albumin/Globulin Ratio 1.2 (1.0-2.2) 05/07/17 05:25 Influenza A (Rapid) Negative (Negative) 05/06/17 10:10 Influenza B (Rapid) POSITIVE (Negative) H 05/06/17 10:10 Influenza Types A,B Ag + H 05/06/17 10:10
[2017-05-07] MEDS: AZITHROMYCIN INJ 500 MG in SODIUM CHLORIDE 0.9% 250 ML IV SCH (23:04)
[2017-05-08] MEDS: SODIUM CHLORIDE FLUSH 0.9% 10 ML SYRINGE IVP SCH ×2 (00:04→09:12)
[2017-05-08] MEDS: CLINDAMYCIN 600 MG/50 ML 50 ML IV SCH ×2 (01:42→09:11)
[2017-05-08] MEDS: SODIUM CHLORIDE 0.9% 1,000 ML IV SCH (01:46)
[2017-05-08] MEDS: PANTOPRAZOLE 40 MG TABLET PO SCH (07:05)
[2017-05-08] MEDS: methylPREDNISolone SUCCINATE 40 MG/ML VIAL IVP SCH ×2 (07:05→14:33)
[2017-05-08] MEDS: LEVALBUTEROL 1.25 MG/3 ML NEB INH SCH (07:45)
[2017-05-08] MEDS: BUDESONIDE 0.5 MG/2 ML NEB INH SCH (07:45)
[2017-05-08] MEDS: ENOXAPARIN 40 MG/0.4 ML SYRINGE SUBQ SCH (09:10)
[2017-05-08] MEDS: POTASSIUM CHLORIDE 20 MEQ TABLET PO SCH (09:11)
[2017-05-08] MEDS: OSELTAMIVIR 75 MG CAPSULE PO SCH (09:11)
[2017-05-08] MEDS: guaiFENesin 600 MG TABLET PO SCH (09:11)
[2017-05-08] MEDS: FELODIPINE ER 2.5 MG TABLET PO SCH (09:11)
[2017-05-08] MEDS: LOSARTAN 50 MG TABLET PO SCH (09:11)
[2017-05-08] MEDS: POLYETHYLENE GLYCOL 3350 17 GM PACKET PO SCH (09:12)
--- NOTE | 2017-05-08 14:39 | Discharge Plan ---
Discharge Plan Disposition: Home, Self Care Condition: Stable Prescriptions: Clindamycin HCl [Clindamycin 300MG CAP] 300 mg PO BID #8 capsule Methylprednisolone [Medrol] 4 mg PO DAILY #1 tab.ds.pk Oseltamivir [Tamiflu] 75 mg PO BID #8 capsule Diet: Regular Activity Restrictions: Activity as Tolerated Shower Restrictions: No Driving Restrictions: No Instruction Topics: Breathing Pursed Lip Dc, Asthma Control, Chronic Lung Disease Irritants, Chron Lung Disease Exercise Safely, Vaccination Flu, Flu Additional Instructions or Follow Up instructions: See your Primary Care Provider in 7-10 days in follow-up. Take the new medications as prescribed, til they are done. Resume all your pre-hospital medications EXCEPT STOP the Hydrochlorothiazide, which dehydrates you. Advance your diet to full diet as tolerated. No Smoking: If you smoke, Please STOP! Call for help. Follow-up with: Suresh Gary MD [Primary Care Provider] -
[2017-05-08 15:56] VITALS: BP 135/70
--- NOTE | 2017-06-10 18:14 | DISCHARGE SUMMARY ---
Physician: Namrata Benavides MD DATE OF ADMISSION: 05/06/2017 DATE OF DISCHARGE: 05/07/2017 HISTORY OF PRESENT ILLNESS: This is a 76-year-old white female with a history of hypertension, COPD, fibromyalgia, remote history of recurrent syncope that have now resolved. The patient presented with a 3-4 day history of a wet cough, shortness of breath, fever and diarrhea after returning from a trip to [place]. The also had previous URI plus diarrhea and was even using her inhaler. The patient was admitted for management of her asthmatic bronchitis exacerbation and diarrhea. HOSPITAL COURSE AND DISCHARGE DIAGNOSES 1. Asthmatic bronchitis with exacerbation. Sputum and blood cultures were done. She was started on empiric antibiotics with Zithromax and clindamycin. Evaluation showed positive influenza B and she was also put on Tamiflu. She was started on IV steroids, nebulizers of Xopenex and budesonide, Mucinex and Robitussin treatments. She improved with more comfortable respiratory status the following day and was able to be discharged. 2. Traveler's diarrhea. There were no findings of C difficile or bacterial positive cultures. She was put on a clear liquid diet and advanced as tolerated, received IV saline, required potassium replacement and her HCTZ was stopped. The frequency and volume of stool was decreased and she was able to be discharged. 3. Hyponatremia. The patient's admitting labs showed a sodium of 123, which improved to 128 on saline infusion. She also required potassium replacement with admission potassium of 2.9, it was 3.6 at discharge. 4. Influenza B. The patient was put on Tamiflu and this was continued at discharge. LABS AND IMAGING: reviewed and summarized above. ALLERGIES 1. AMOXICILLIN. 2. POTASSIUM CLAVULANATE 3. CODEINE. DISCHARGE MEDICATIONS 1. Serevent Diskus. 2. Flonase nasal spray. 3. Percocet p.r.n. 4. Montelukast 10 mg every evening. 5. Losartan 100 mg daily. 6. Felodipine ER 5 mg daily. 7. ProAir HFA inhaler 2 puffs q. 4 hours p.r.n. 8. Flovent inhaler 2 puffs b.i.d. 9. Nexium 20 mg daily. 10. Clindamycin 300 mg b.i.d. for an additional 4 days for sinusitis treatment. 11. Tamiflu 75 mg b.i.d. for an additional 4 days for positive influenza B. 12. Medrol Dosepak to taper down as directed. Her HCTZ was discontinued. PHYSICAL EXAMINATION AT DISCHARGE VITAL SIGNS: Blood pressure 135/70, pulse of 71 and sinus rhythm, afebrile. Room air saturation 94%. HEENT: Unremarkable, except for mild nasal congestion. NECK: Without JVD or thyromegaly. CHEST: Clear. HEART: Sounds normal. ABDOMEN: Soft, nontender, normal bowel sounds. EXTREMITIES: Without edema or rash. NEUROLOGIC: Intact. FOLLOWUP: Recommended to see her PCP within 1-2 weeks. CODE STATUS: FULL CODE. Time required to complete this entire discharge, dictation, review of chart and medications: 30 minutes. TD: 06/10/2017 18:13 MTDAce
== END 2017-05-08 16:25 | disposition home or self-care (01) | DRG 194 ==
LOC: EDUNIT# → ED 06:02 → MS2 12:20
PROVIDERS: ADMIT Internal Medicine; ATTEND Internal Medicine
DX: J10.1 Influenza due to other identified influenza virus with other respiratory manifestations (principal); R09.02 Hypoxemia; J44.0 Chronic obstructive pulmonary disease with (acute) lower respiratory infection; J20.9 Acute bronchitis, unspecified; J45.901 Unspecified asthma with (acute) exacerbation; E87.1 Hypo-osmolality and hyponatremia; J44.1 Chronic obstructive pulmonary disease with (acute) exacerbation; J20.8 Acute bronchitis due to other specified organisms; E87.6 Hypokalemia; R19.7 Diarrhea, unspecified; M19.90 Unspecified osteoarthritis, unspecified site; M79.7 Fibromyalgia; I10 Essential (primary) hypertension; R41.0 Disorientation, unspecified; R00.0 Tachycardia, unspecified; T48.6X5A Adverse effect of antiasthmatics, initial encounter; Y92.238 Other place in hospital as the place of occurrence of the external cause; Z66 Do not resuscitate; Z79.51 Long term (current) use of inhaled steroids; Z79.891 Long term (current) use of opiate analgesic; Z79.899 Other long term (current) drug therapy; Z87.891 Personal history of nicotine dependence
CPT/HCPCS: 36415; 36600; 71045; 71046; 80048; 80053; 82803; 85025; 87040; 87045; 87046; 87070; 87205; 87275; 87276; 87493; 93005; 94640; 94761; 99283; 99284

== ENCOUNTER 2017-05-13 19:19 | Emergency (ER) | payer MEDICARE, OTHER ==
[2017-05-13 19:35] VITALS: BP 156/98
[2017-05-13] MEDS ORDERED: IPRATROPIUM/ALBUTEROL 3 ML NEB INH STA (20:13)
[2017-05-13] MEDS ORDERED: LORazepam 0.5 MG TABLET PO STA (20:14)
--- NOTE | 2017-05-13 20:20 | ED Physician Documentation ---
PD HPI URI - Stated complaint Stated Complaint: COUGH/CONGESTION - Chief complaint Chief Complaint: Resp - History obtained from History obtained from: Patient, Family - History of Present Illness Timing - onset: How many weeks ago (2) Timing details: Gradual onset, Still present Associated symptoms: Productive cough. No: Fever, Chills Contributing factors: Sick contact Similar symptoms before: Work up / diagnostics, Treatment Recently seen: Admitted - Additional information Additional information: Patient is a 76 year old female who is presenting to the emergency department for coughing. According to patient and daughter, patient had been admitted to the hospital for a few days for flu and pneumonia. Patient was discharged but her then developed pneumonia and flu and is still in the hospital. patient still reports a cough and is fixated on the fact that her doctor says she needs antibiotics. Patient's daughter states that she had not been acting herself lately ever since leaving the hospital. Review of Systems Constitutional: denies: Fever, Chills Eyes: reports: Reviewed and negative Ears: reports: Reviewed and negative Nose: reports: Congestion. denies: Rhinorrhea / runny nose Throat: reports: Reviewed and negative Cardiac: denies: Chest pain / pressure, Palpitations Respiratory: reports: Dyspnea, Cough, Wheezing GI: denies: Nausea, Vomiting : reports: Reviewed and negative Skin: denies: Rash, Lesions Musculoskeletal: denies: Extremity swelling Neurologic: denies: Generalized weakness, Focal weakness Psychiatric: reports: Delusions, Anxiety Immunocompromised: denies: Immunocompromised PD PAST MEDICAL HISTORY - Past Medical History Past Medical History: Yes Cardiovascular: None Respiratory: Asthma Neuro: None Endocrine/Autoimmune: None GI: Other HEENT: Dental implants Musculoskeletal: Osteoarthritis, Fibromyalgia Derm: None - Past Surgical History 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: Tubal ligation, 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 HEENT: Cataracts - Present Medications Home Medications: Ambulatory Orders Medication Instructions Recorded Confirmed Fluticasone [Flonase] 2 spray DANNY DAILY PRN 05/08/15 05/13/17 Salmeterol Xinafoate [Serevent 1 puffs INH DAILY 05/08/15 05/13/17 Diskus] oxyCODONE/ACET 5/325 [Percocet 5 1 tab ORAL Q6HR PRN 05/14/15 05/13/17 mg/325 mg] Albuterol Sulfate [Proair Hfa 2 puffs INH Q4H PRN 05/06/17 05/13/17 Inhaler] Esomeprazole Magnesium [Nexium] 20 mg PO QDAC 05/06/17 05/13/17 Felodipine [Felodipine ER] 5 mg PO DAILY 05/06/17 05/13/17 Fluticasone 220 Mcg [Flovent] 2 puffs INH BID 05/06/17 05/13/17 Losartan Potassium 100 mg PO DAILY 05/06/17 05/13/17 Montelukast Sodium 10 mg PO QPM 05/06/17 05/13/17 Clindamycin HCl [Clindamycin 300MG 300 mg PO BID #8 capsule 05/08/17 05/13/17 CAP] Methylprednisolone [Medrol] 4 mg PO DAILY #1 tab.ds.pk 05/08/17 05/13/17 Oseltamivir [Tamiflu] 75 mg PO BID #8 capsule 05/08/17 05/13/17 - Allergies Allergies/Adverse Reactions: Allergies Allergy/AdvReac Type Severity Reaction Status Date / Time amoxicillin trihydrate * Allergy Hives Verified 05/13/17 19:56 [From Augmentin] potassium clavulanate * Allergy Hives Verified 05/13/17 19:56 [From Augmentin] codeine AdvReac Intermediate Nausea Verified 05/13/17 19:56 - Social History Does the pt smoke?: No Smoking Status: Never smoker Does the pt drink ETOH?: No Does the pt have substance abuse?: No - Immunizations Immunizations are current?: Yes - POLST Patient has POLST: No PD ED PE NORMAL - Vitals Vital signs reviewed: Yes - General General: Alert and oriented X 3, No acute distress - HEENT HEENT: Atraumatic, PERRL - Neck Neck: Supple, no meningeal sign, No JVD - Cardiac Cardiac: RRR, No murmur - Abdomen Abdomen: Soft, Non tender - Derm Derm: Normal color, No rash - Extremities Extremities: No edema, No calf tenderness / cord - Neuro Neuro: Alert and oriented X 3, No motor deficit, Normal speech PD ED PE EXPANDED - Respiratory Respiratory: Wheezing, Right lower lobe, Left lower lobe - Psych Psych: Anxious, Agitated Results - Vitals Vitals: Vital Signs - 24 hr 05/13/17 05/13/17 19:32 20:25 Temperature 37.0 C Heart Rate 94 98 Respiratory 16 18 Rate Blood Pressure 156/98 H O2 Saturation 97 Oxygen O2 Source Room air - Rads (name of study) chest x-ray Radiology: Final report received (normal) PD MEDICAL DECISION MAKING - ED course Complexity details: reviewed old records, reviewed results, re-evaluated patient , considered differential, d/w patient, d/w family ED course: Patient was seen and examined at bedside. patient was well appearing and not hypoxic. chest x-ray was ordered and patient was treated with duoneb. When patient returned from imaging the results were reviewed and there were no acute infiltrates or consolidations. A lengthy discussion was had with the daughter concerning patient's mental decline and it was agreed to follow up with the doctor this week. Patient was stable for discharge with outpatient follow up. Departure - Departure Disposition: 01 Home, Self Care Clinical Impression: Asthmatic bronchitis with acute exacerbation Condition: Good Instructions: ED Bronchitis Asthmatic Follow-Up: Suresh Gary MD [Primary Care Provider] - Within 3 Days Comments: Your chest x-ray today was within normal limits. There is no acute pneumonia present. Your symptoms are being caused by bronchitis and you should continue with your breathing treatments. it is important to follow up with your doctor next week for re-evaluation. Discharge Date/Time: 05/13/17 21:31
--- NOTE | 2017-05-13 21:04 | XRAY Report ---
EXAM: CHEST RADIOGRAPHY EXAM DATE: 05/13/2017 08:59 PM. CLINICAL HISTORY: Cough. COMPARISON: 05/06/2017. TECHNIQUE: 2 views. FINDINGS: Lungs/Pleura: No definite localized infiltrate, consolidation, effusion, or pneumothorax. Mediastinum: Heart and mediastinal contours are unremarkable. Other: Osteopenia, degenerative changes, and other chronic findings. IMPRESSION: No acute disease. [facility] Referring Provider Line: [phone] SITE ID: [id number]
== END 2017-05-13 21:31 | disposition home or self-care (01) ==
LOC: ED 19:19
DX: J45.901 Unspecified asthma with (acute) exacerbation (principal)
CPT/HCPCS: 71046; 94640; 99282; 99283; A9270

== ENCOUNTER 2017-09-27 08:15 | Outpatient (CLI) | payer MEDICARE, OTHER ==
[2017-09-27 12:28] LABS: BASOPHILS # (AUTO) 0.1 10^3/uL (0.0-0.1); EOSINOPHILS # (AUTO) 0.2 10^3/uL (0.0-0.7); EOSINOPHILS % (AUTO) 3.3 %; HGB - HEMOGLOBIN 13.5 g/dL (12.0-16.0); LYMPHOCYTES # (AUTO) 3.2 10^3/uL (1.5-3.5); LYMPHOCYTES % (AUTO) 53.6 %; MEAN CORPUSCULAR HEMOGLOBIN 30.5 pg (27.0-31.0); MEAN CORPUSCULAR HGB CONC 34.1 g/dL (32.0-36.0); MEAN CORPUSCULAR VOLUME 89.6 fL (81.0-99.0); MEAN PLATELET VOLUME 8.1 fL (7.9-10.8); MONOCYTES # (AUTO) 0.6 10^3/uL (0.0-1.0); MONOCYTES % (AUTO) 10.2 %; NEUTROPHILS # (AUTO) 1.9 10^3/uL (1.5-6.6); NEUTROPHILS % (AUTO) 31.9 %; PLT - PLATELET COUNT 324 10^3/uL (130-450); RED BLOOD COUNT 4.43 10^6/uL (4.20-5.40); RED CELL DISTRIBUTION WIDTH 13.4 % (12.0-15.0); WHITE BLOOD COUNT 5.9 x10^3/uL (4.8-10.8)
[2017-09-27 12:59] LABS: ALBUMIN 4.1 g/dL (3.2-5.5); ALBUMIN/GLOBULIN RATIO 1.5 (1.0-2.2); ALKALINE PHOSPHATASE 51 IU/L (42-121); ALT ALANINE AMINOTRANSFERASE 12 IU/L (10-60); AST ASPARTATE AMINOTRANSFERASE 19 IU/L (10-42); BILIRUBIN,TOTAL 0.6 mg/dL (0.2-1.0); BUN - BLOOD UREA NITROGEN 12 mg/dL (6-20); CALCIUM 9.2 mg/dL (8.5-10.3); CARBON DIOXIDE - CO2 30 mmol/L (21-32); CHLORIDE 98 mmol/L (101-111); CHOL/HDL RATIO 2.6 (<4.4); CHOLESTEROL 182 mg/dL; CREATININE 0.5 mg/dL (0.4-1.0); GFR - MDRD 119 (>89); GLUCOSE 87 mg/dL (70-100); HDL CHOLESTEROL 69 mg/dL; LDL CHOLESTEROL,CALCULATED 99 mg/dL; LDL/HDL RATIO 1.4 (<4.4); SODIUM 136 mmol/L (135-145); TOTAL PROTEIN 6.8 g/dL (6.7-8.2); VLDL CHOLESTEROL 14 mg/dL
== END 2017-09-27 08:16 | disposition home or self-care (01) ==
LOC: LAB.WCP 08:15
PROVIDERS: ATTEND Family Medicine
DX: I10 Essential (primary) hypertension (principal); E78.5 Hyperlipidemia, unspecified
CPT/HCPCS: 36415; 80053; 80061; 83721; 85025

== ENCOUNTER 2023-10-14 13:48 | Emergency (ER) | payer MEDICARE, OTHER ==
--- NOTE | 2023-10-14 17:07 | XRAY Report ---
PROCEDURE: Chest 1V INDICATIONS: chest pain TECHNIQUE: One view of the chest was acquired. COMPARISON: Chest radiograph 05/13/2017, 05/07/2017 FINDINGS: Surgical changes and devices: None. Lungs and pleura: No pleural effusions or pneumothorax. Lungs are clear. Mediastinum: Mediastinal contours appear normal. Heart size is normal. Bones and chest wall: No suspicious bony lesions. Overlying soft tissues appear unremarkable. IMPRESSION: No acute cardiopulmonary process. Reviewed by: Gifty Marcus MD, PhD on 10/14/2023 5:06 PM PDT Approved by: Gifty Marcus MD, PhD on 10/14/2023 5:06 PM PDT Station ID: [id number]
[2023-10-14 17:19] LABS: BASOPHILS % (AUTO) 0.7 %; EOSINOPHILS % (AUTO) 0.2 %; HCT - HEMATOCRIT 37.9 % (37.0-47.0); HGB - HEMOGLOBIN 12.4 g/dL (12.0-16.0); LYMPHOCYTES % (AUTO) 33.1 %; MEAN CORPUSCULAR HEMOGLOBIN 30.4 pg (27.0-31.0); MEAN CORPUSCULAR HGB CONC 32.7 g/dL (32.0-36.0); MEAN CORPUSCULAR VOLUME 92.9 fL (81.0-99.0); MEAN PLATELET VOLUME 9.5 fL (7.9-10.8); MONOCYTES # (AUTO) 0.9 10^3/uL (0.0-1.0); NEUTROPHILS % (AUTO) 50.3 %; PLT - PLATELET COUNT 235 10^3/uL (130-450); RED BLOOD COUNT 4.08 10^6/uL (4.20-5.40); RED CELL DISTRIBUTION WIDTH 12.6 % (12.0-15.0)
[2023-10-14 17:37] VITALS: BP 131/82; O2SAT 94
[2023-10-14 17:42] LABS: ALBUMIN 3.8 g/dL (3.2-5.5); ALBUMIN/GLOBULIN RATIO 1.5 (1.0-2.2); BILIRUBIN,TOTAL 0.3 mg/dL (0.2-1.0); CALCIUM 9.8 mg/dL (8.5-10.3); CREATININE 1.5 mg/dL (0.6-1.3); POTASSIUM 3.2 mmol/L (3.5-4.5); TOTAL PROTEIN 6.4 g/dL (6.4-8.9)
--- NOTE | 2023-10-14 17:54 | ED Physician Documentation ---
History of Present Illness - Stated complaint Stated Complaint: COUGHING UP BLOOD - Chief complaint Chief Complaint: Resp - History obtained from History obtained from: Patient, Family (daughter) - History of Present Illness Timing: How many weeks ago (2) - Additonal information Additional information: Alyssia Spring is an 83-year-old female who has previously been admitted to the hospital with pneumonia and was thought to have COPD. She has been tested by the button attaching machine operator and apparently does not have COPD. The patient herself is demented and is not able to give an adequate history. When I first encountered her she was not sure why she was here she felt that her daughter might have been frightened by the blood she coughed up and she tells me that she has been doing this for years. Later with the daughter and in the room the patient states maybe it has been 2 weeks. The patient is not overtly short of breath she is not currently coughing does not have a fever and does not feel ill. The daughter is concerned about the possibility of cancer and was looking to get an x-ray of her chest. Review of Systems Constitutional: denies: Fever Eyes: denies: Decreased vision Ears: denies: Ear pain Nose: denies: Rhinorrhea / runny nose, Congestion Throat: denies: Sore throat Cardiac: denies: Chest pain / pressure, Palpitations Respiratory: reports: Cough, Hemoptysis. 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 HEENT: Cataracts - Present Medications Home Medications: Ambulatory Orders Medication Instructions Recorded Confirmed Fluticasone [Flonase] 2 spray DANNY DAILY PRN 05/08/15 05/13/17 Salmeterol Xinafoate [Serevent 1 puffs INH DAILY 05/08/15 05/13/17 Diskus] oxyCODONE/ACET 5/325 [Percocet 5 1 tab ORAL Q6HR PRN 05/14/15 05/13/17 mg/325 mg] Albuterol Sulfate [Proair Hfa 2 puffs INH Q4H PRN 05/06/17 05/13/17 Inhaler] Esomeprazole Magnesium [Nexium] 20 mg PO QDAC 05/06/17 05/13/17 Felodipine [Felodipine ER] 5 mg PO DAILY 05/06/17 05/13/17 Fluticasone 220 Mcg [Flovent] 2 puffs INH BID 05/06/17 05/13/17 Losartan Potassium 100 mg PO DAILY 05/06/17 05/13/17 Montelukast Sodium 10 mg PO QPM 05/06/17 05/13/17 Clindamycin HCl [Clindamycin 300MG 300 mg PO BID #8 capsule 05/08/17 05/13/17 CAP] Oseltamivir [Tamiflu] 75 mg PO BID #8 capsule 05/08/17 05/13/17 methylPREDNISolone [Medrol] 4 mg PO DAILY #1 tab.ds.pk 05/08/17 05/13/17 - Allergies Allergies/Adverse Reactions: Allergies Allergy/AdvReac Type Severity Reaction Status Date / Time amoxicillin trihydrate * Allergy Hives Verified 05/13/17 19:56 [From Augmentin] potassium clavulanate * Allergy Hives Verified 05/13/17 19:56 [From Augmentin] codeine AdvReac Intermediate Nausea Verified 05/13/17 19:56 - Social History Does the pt smoke?: No Smoking Status: Never smoker Does the pt drink ETOH?: No Does the pt have substance abuse?: No - Immunizations Immunizations are current?: Yes - POLST Patient has POLST: No PD ED PE NORMAL - Vitals Vital signs reviewed: Yes (wide pulse pressure ) - General General: No acute distress, Well developed/nourished - HEENT HEENT: Atraumatic, PERRL, EOMI - Neck Neck: Supple, no meningeal sign, No bony TTP - Cardiac Cardiac: RRR, No murmur - Respiratory Respiratory: No respiratory distress, Clear bilaterally - Abdomen Abdomen: Soft, Non tender - Back Back: No CVA TTP, No spinal TTP - Derm Derm: Normal color, Warm and dry, No rash - Extremities Extremities: No deformity, No edema - 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, No motor deficit, No sensory deficit, Normal speech Eye Opening: Spontaneous Motor: Obeys Commands Verbal: Confused GCS Score: 14 - Psych Psych: Normal mood, Normal affect Results - Vitals Vitals: Vital Signs - 24 hr 10/14/23 10/14/23 10/14/23 13:53 15:28 15:42 Temperature 36.6 C 37.0 C Heart Rate 60 81 Respiratory 16 17 18 Rate Blood Pressure 116/54 L 123/54 L O2 Saturation 96 95 10/14/23 17:31 Temperature Heart Rate 71 Respiratory 16 Rate Blood Pressure 131/82 H O2 Saturation 94 Oxygen O2 Source Room air - Labs Labs: Laboratory Tests 10/14/23 10/14/23 10/14/23 17:13 17:13 17:13 WBC 6.0 RBC 4.08 L Hgb 12.4 Hct 37.9 MCV 92.9 MCH 30.4 MCHC 32.7 RDW 12.6 Plt Count 235 MPV 9.5 Neut # (Auto) 3.0 Lymph # (Auto) 2.0 Campbell # (Auto) 0.9 Eos # (Auto) 0.0 Baso # (Auto) 0.0 Absolute Nucleated RBC 0.00 Nucleated RBC % 0.0 Sodium 139 Potassium 3.2 L Chloride 98 L Carbon Dioxide 33 H Anion Gap 8.0 BUN 29 H Creatinine 1.5 H Estimated GFR (MDRD) 33 L Glucose 105 H Lactic Acid 0.8 Calcium 9.8 Total Bilirubin 0.3 AST 18 ALT 8 L Alkaline Phosphatase 65 Total Protein 6.4 Albumin 3.8 Globulin 2.6 Albumin/Globulin Ratio 1.5 Lipase 20 - Rads (name of study) chest Relevant Findings:: Prelim report reviewed (Impression: No acute cardiopulmonary process.), EMP independent interpretation of test (On my read this looks like a dry chest.) Procedures - IVC sono (time) 1800 Bedside IVC sono: IVC measures (cm) (0.95), Dehydration (es t1-2 liter deficit) PD Medical Decision Making - ED course Complexity details: reviewed old records, reviewed results, re-evaluated patient, considered differential, d/w patient, d/w family Reviewed Lab Results: We reviewed a complete blood count showing a normal white blood cell count normal hemoglobin hematocrit and platelets chemistries were with a potassium low at 3.2 BUN elevated at 29 and creatinine elevated at 1.5 these were both records for the patient. Lactate is normal at 0.8. Liver functions were normal.I interpreted these laboratory studies to indicate that if the patient has been coughing up blood she has not coughed enough blood up to change her blood counts there is no evidence of overwhelming infection with a normal white blood cell count. The potassium low at 3.2 is consistent with mild hypokalemia and the elevated BUN and creatinine are consistent with the level of dehydration found on interrogation of the IVC with POCUS. This indicates some dehydration causing mild acute kidney injury. Departure - Departure Disposition: 01 Home, Self Care Clinical Impression: Hypokalemia, Dehydration Condition: Stable Instructions: Hypokalemia Dc, ED Dehydration Follow-Up: your, doctor [Other] Comments: Alyssia, today we were able to perform a chest x-ray which was a normal appearing chest. No evidence of a reason for hemoptysis or coughing up blood. We did not find any other abnormalities on your blood work to indicate infection. We did find evidence of dehydration and my recommendation is to drink 2 L of fluid today and do this daily. There is some evidence of acute kidney injury associated with this dehydration. A follow-up with your primary care doctor is indicated for repeat blood work. Today we also found your potassium was mildly decreased and we have given you some potassium supplement. A repeat of your potassium is indicated as well. Follow-up with your primary care doctor. Forms: PCP List
[2023-10-14] MEDS: POTASSIUM BICARB 25 MEQ TABLET PO STA (18:18)
== END 2023-10-14 18:28 | disposition home or self-care (01) ==
LOC: ED 13:48
DX: K92.0 Hematemesis (principal); N17.9 Acute kidney failure, unspecified; E86.0 Dehydration; E87.6 Hypokalemia; J45.909 Unspecified asthma, uncomplicated; F03.90 Unspecified dementia, unspecified severity, without behavioral disturbance, psychotic disturbance, mood disturbance, and anxiety; Z79.899 Other long term (current) drug therapy
CPT/HCPCS: 36415; 71045; 80053; 83605; 83690; 85025; 99283; 99284; A9270

== ENCOUNTER 2023-10-27 05:54 | Outpatient (CLI) | payer MEDICARE, OTHER | END 2023-10-27 23:59 | disposition critical access hospital (66) | LOC: EMS 05:54 | DX: R05.9 Cough, unspecified (principal); R50.9 Fever, unspecified | CPT/HCPCS: A0425; A0429 ==

== ENCOUNTER 2023-10-27 06:10 | Emergency (ER) | payer MEDICARE, OTHER ==
--- NOTE | 2023-10-27 06:14 | ED Physician Documentation ---
PD HPI URI - Stated complaint Stated Complaint: COUGH/COPD - History obtained from History obtained from: Patient (dementia so not recalling recent events, but is able to tell us current symtpoms.), Family, EMS (Medics have information from the daughter that the patient has had cough and some increased wheezing. The daughter herself had pneumonia recently and is concerned.) - History of Present Illness Timing - onset: Yesterday Timing duration: Days (1) Timing details: Gradual onset, Still present Associated symptoms: Dry cough, Dyspnea Contributing factors: Sick contact (daughter with reported recent pneumonia, info providded by her through medics.), COPD / asthma Review of Systems Unable to obtain: Dementia PD PAST MEDICAL HISTORY - Past Medical History Cardiovascular: None Respiratory: Asthma, COPD Neuro: Dementia Endocrine/Autoimmune: None GI: Other HEENT: Dental implants Musculoskeletal: Osteoarthritis, Fibromyalgia Derm: None - Past Surgical History 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, 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 HEENT: Cataracts - Present Medications Home Medications: Ambulatory Orders Medication Instructions Recorded Confirmed Fluticasone [Flonase] 2 spray DANNY DAILY PRN 05/08/15 05/13/17 Salmeterol Xinafoate [Serevent 1 puffs INH DAILY 05/08/15 05/13/17 Diskus] oxyCODONE/ACET 5/325 [Percocet 5 1 tab ORAL Q6HR PRN 05/14/15 05/13/17 mg/325 mg] Albuterol Sulfate [Proair Hfa 2 puffs INH Q4H PRN 05/06/17 05/13/17 Inhaler] Esomeprazole Magnesium [Nexium] 20 mg PO QDAC 05/06/17 05/13/17 Felodipine [Felodipine ER] 5 mg PO DAILY 05/06/17 05/13/17 Fluticasone 220 Mcg [Flovent] 2 puffs INH BID 05/06/17 05/13/17 Losartan Potassium 100 mg PO DAILY 05/06/17 05/13/17 Montelukast Sodium 10 mg PO QPM 05/06/17 05/13/17 Clindamycin HCl [Clindamycin 300MG 300 mg PO BID #8 capsule 05/08/17 05/13/17 CAP] Oseltamivir [Tamiflu] 75 mg PO BID #8 capsule 03/31/18 04/05/18 methylPREDNISolone [Medrol] 4 mg PO DAILY #1 tab.ds.pk 05/08/17 05/13/17 Doxycycline Hyclate 100 mg PO BID 7 Days #14 cap 10/27/23 HYDROcod/ACETAM 5/325 [Ludlow 5/325] 1 ea PO Q6H PRN #15 tablet 10/27/23 dexAMETHasone [Decadron] 4 mg PO DAILY #7 tablet 10/27/23 - Allergies Allergies/Adverse Reactions: Allergies Allergy/AdvReac Type Severity Reaction Status Date / Time amoxicillin trihydrate * Allergy Hives Verified 10/27/23 06:14 [From Augmentin] potassium clavulanate * Allergy Hives Verified 10/27/23 06:14 [From Augmentin] codeine AdvReac Intermediate Nausea Verified 10/27/23 06:14 - Social History Does the pt smoke?: No Smoking Status: Never smoker Does the pt drink ETOH?: No Does the pt have substance abuse?: No - Immunizations Immunizations are current?: Yes - POLST Patient has POLST: No PD ED PE NORMAL - Vitals Vital signs reviewed: Yes - General General: No acute distress, Well developed/nourished. No: Alert and oriented X 3 (just to person, but is alert and comfortable. conversant, just poor memory. ) - HEENT HEENT: Pharynx benign - Neck Neck: Supple, no meningeal sign, No adenopathy - Respiratory Respiratory: No respiratory distress. No: Clear bilaterally (no coarse sounds, but does have diffuse moderate wheezing without work of breathing. ) - Abdomen Abdomen: Soft, Non tender - Derm Derm: Normal color, Warm and dry - Extremities Extremities: No edema, No calf tenderness / cord - Neuro Neuro: No motor deficit, Normal speech Results - Vitals Vitals: Vital Signs - 24 hr 10/27/23 10/27/23 10/27/23 06:11 06:35 08:09 Temperature 35.4 C L Heart Rate 68 62 76 Respiratory 16 16 16 Rate Blood Pressure 119/68 O2 Saturation 95 10/27/23 08:21 Temperature Heart Rate 77 Respiratory 18 Rate Blood Pressure 116/61 O2 Saturation 93 Oxygen O2 Source Room air - Labs Labs: Laboratory Tests 10/27/23 10/27/23 10/27/23 06:10 06:22 06:22 WBC 13.3 H RBC 3.91 L Hgb 11.5 L Hct 35.8 L MCV 91.6 MCH 29.4 MCHC 32.1 RDW 12.7 Plt Count 411 MPV 8.9 Neut # (Auto) 10.1 H Lymph # (Auto) 2.0 Randolph # (Auto) 0.8 Eos # (Auto) 0.1 Baso # (Auto) 0.1 Absolute Nucleated RBC 0.00 Nucleated RBC % 0.0 Sodium 135 Potassium 3.1 L Chloride 95 L Carbon Dioxide 31 Anion Gap 9.0 BUN 33 H Creatinine 1.2 Estimated GFR (MDRD) 43 L Glucose 99 Calcium 9.9 Magnesium 1.6 L Total Bilirubin 0.7 AST 17 ALT 14 Alkaline Phosphatase 60 Total Protein 6.8 Albumin 3.4 Globulin 3.4 Albumin/Globulin Ratio 1.0 Lipase 31 Nasal Adenovirus (PCR) NOT DETECTED Nasal B. parapertussis DNA (PCR) NOT DETECTED Nasal Coronavir 229E PCR NOT DETECTED Nasal Coronavir HKU1 PCR NOT DETECTED Nasal Coronavir NL63 PCR NOT DETECTED Nasal Coronavir OC43 PCR NOT DETECTED Nasal Enterovir/Rhinovir PCR NOT DETECTED Nasal Influenza B PCR NOT DETECTED Nasal Influenza A PCR NOT DETECTED Nasal Parainfluen 1 PCR NOT DETECTED Nasal Parainfluen 2 PCR NOT DETECTED Nasal Parainfluen 3 PCR DETECTED A Nasal Parainfluen 4 PCR NOT DETECTED Nasal RSV (PCR) NOT DETECTED Nasal B.pertussis DNA PCR NOT DETECTED Nasal C.pneumoniae (PCR) NOT DETECTED Danny Human Metapneumo PCR NOT DETECTED Nasal M.pneumoniae (PCR) NOT DETECTED Nasal SARS-CoV-2 (PCR) NOT DETECTED - Rads (name of study) chest xray Relevant Findings:: Prelim report reviewed (Possible early infiltrate in the left base versus scarring.), EMP independent interpretation of test PD Medical Decision Making - ED course Complexity details: reviewed results (Chest x-ray does not show any significant infiltrate. There is a atelectasis versus scarring versus mild infiltrate in the left base. Her viral panel is positive for parainfluenza so I would presume predominantly viral pneumonitis and bronchitis. However in the setting of COPD concurrent use abx.), re-evaluated patient (seems stable for home. Good sats. Ulabored breathing. She is quite ready to go home and repeats asking about discharge. Daughter comfortable with this. ), considered differential (Brought by EMS with concerns for respiratory infection per medics. The patient is cared for by her daughter. Recent cough and increased wheezing. The daughter recently had pneumonia in which the patient evaluated.), d/w patient, d/w family (daughter present in ED and I gave update and findings bedside with pt. ) ED course: The patient is appearing comfortable. Unlabored breathing. Saturations 95%. There is scattered wheezing but no coarse sounds. We can evaluate with chest x- ray and look for viral illnesses. She does not appear ill at this time. Can get blood count to evaluate as well. She does normally take albuterol. We can give a nebulizer for the wheezing. Will get more information from the daughter when she arrives. Given exposure to someone ill with a cough and wheezing now apparently over baseline or else the daughter would be concerned, would be reasonable to provide a dosing of steroid as well. No stigmata of CHF on exam without any edema, wet sounds, signs of fluid overload. Departure - Departure Disposition: 01 Home, Self Care Clinical Impression: Acute exacerbation of COPD with asthma, Cough, Parainfluenza virus bronchopneumonia Condition: Stable Record reviewed to determine appropriate education?: Yes Prescriptions: dexAMETHasone [Decadron] 4 mg PO DAILY #7 tablet Doxycycline Hyclate 100 mg PO BID 7 Days #14 cap HYDROcod/ACETAM 5/325 [Ludlow 5/325] 1 ea PO Q6H PRN #15 tablet PRN Reason: Pain Comments: The viral panel is positive for parainfluenza. This will act a lot in the bronchioles and lungs with inflammation, especially in the setting of underlying lung disease like COPD. We would go with some steroid dosing for the next week to try to reduce that inflammation. There is not a particular antiviral to treat with parainfluenza. In the setting of underlying lung disease however, common recommendations are to treat with antibiotic anyway even though it is largely viral as it can be combination infections that develop. A sent prescription for the steroid and antibiotic to your preferred pharmacy. I also added hydrocodone tablets to use every 6 hours if needed for cough suppression as well. I believe there will be considerable improvement in the cough with the steroids over the next day or so. Return if worsening trouble breathing or persistently low oxygen levels etc. Continue with other usual medicines. Use the albuterol that you have at home consistently 4 times a day over the next week or so. I am prescribing a short course of narcotic pain medication for you. These are potentially dangerous and addictive medications that should be used carefully. These medications may constipate you. Take an [id number] stool softener such as docusate twice daily with plenty of water while taking these med ications. If you go 24 hours without a bowel movement, take [id number] MiraLAX, per package instructions. Do not drink or drive while taking these medications. If you received narcotic or sedating medications while in the emergency department do not drive for 24 hours. Store this medication in a safe, secure place and out of reach of children. It is a violation of federal law to give or sell this medication to another person or to use in a manner other than prescribed. The ED will not refill narcotic prescriptions, including prescriptions lost or stolen. You can dispose of unwanted medications at the [facility]'s office or at several pharmacies such as [facility]. Forms: PCP List Discharge Date/Time: 10/27/23 08:40
[2023-10-27 06:28] LABS: BASOPHILS # (AUTO) 0.1 10^3/uL (0.0-0.1); BASOPHILS % (AUTO) 0.5 %; EOSINOPHILS # (AUTO) 0.1 10^3/uL (0.0-0.7); EOSINOPHILS % (AUTO) 0.5 %; HCT - HEMATOCRIT 35.8 % (37.0-47.0); HGB - HEMOGLOBIN 11.5 g/dL (12.0-16.0); MEAN CORPUSCULAR HEMOGLOBIN 29.4 pg (27.0-31.0); MEAN CORPUSCULAR HGB CONC 32.1 g/dL (32.0-36.0); MEAN CORPUSCULAR VOLUME 91.6 fL (81.0-99.0); MEAN PLATELET VOLUME 8.9 fL (7.9-10.8); MONOCYTES # (AUTO) 0.8 10^3/uL (0.0-1.0); MONOCYTES % (AUTO) 6.1 %; NEUTROPHILS # (AUTO) 10.1 10^3/uL (1.5-6.6); NEUTROPHILS % (AUTO) 76.2 %; PLT - PLATELET COUNT 411 10^3/uL (130-450); RED BLOOD COUNT 3.91 10^6/uL (4.20-5.40); RED CELL DISTRIBUTION WIDTH 12.7 % (12.0-15.0); WHITE BLOOD COUNT 13.3 x10^3/uL (4.8-10.8)
[2023-10-27] MEDS: ALBUTEROL NEB 2.5 MG/3 ML INH STA (06:33)
[2023-10-27 06:39] LABS: MAGNESIUM 1.6 mg/dL (1.7-2.3)
[2023-10-27 06:45] LABS: ALBUMIN 3.4 g/dL (3.2-5.5); BILIRUBIN,TOTAL 0.7 mg/dL (0.2-1.0); CALCIUM 9.9 mg/dL (8.5-10.3); CREATININE 1.2 mg/dL (0.6-1.3); POTASSIUM 3.1 mmol/L (3.5-4.5); TOTAL PROTEIN 6.8 g/dL (6.4-8.9)
[2023-10-27] MEDS: dexAMETHasone 4 MG TABLET PO STA (07:03)
[2023-10-27 07:12] LABS: B. PARAPERTUSSIS- RESP PCR PAN NOT DETECTED; B. PERTUSSIS- RESP PCR PANEL NOT DETECTED; C. PNEUMONIAE- RESP PCR PANEL NOT DETECTED; CORONAVIRUS 229E-RESP PCR NOT DETECTED; CORONAVIRUS HKU1-RESP PCR NOT DETECTED; CORONAVIRUS NL63-RESP PCR NOT DETECTED; CORONAVIRUS OC43-RESP PCR NOT DETECTED; HUMAN METAPNEUMOVIRUS NOT DETECTED; INFLUENZA A- RESP PCR PANEL NOT DETECTED; INFLUENZA B - RESP PCR PANEL NOT DETECTED; M. PNEUMONIAE- RESP PCR PANEL NOT DETECTED; PARAINFLUENZA VIRUS 1 NOT DETECTED; PARAINFLUENZA VIRUS 2 NOT DETECTED; PARAINFLUENZA VIRUS 3 DETECTED; PARAINFLUENZA VIRUS 4 NOT DETECTED; RHINOVIRUS/ENTEROVIRUS NOT DETECTED; RSV- RESP PCR PANEL NOT DETECTED; SARS-CoV-2 -RESP PCR PANEL NOT DETECTED
[2023-10-27] MEDS: HYDROcod/ACETAM 5/325 MG TABLET PO STA (07:46)
[2023-10-27] MEDS: DOXYCYCLINE 100 MG TABLET PO STA (07:46)
[2023-10-27] MEDS: IPRATROPIUM/ALBUTEROL 3 ML NEB INH STA (07:47)
--- NOTE | 2023-10-27 08:03 | XRAY Report ---
PROCEDURE: Chest 1V INDICATIONS: chest pain TECHNIQUE: One view of the chest was acquired. COMPARISON: 10/14/2023. FINDINGS: Surgical changes and devices: None. Lungs and pleura: No pleural effusions or pneumothorax. Patchy density, retrocardiac region of left lower lobe. Mediastinum: Mediastinal contours appear normal. Heart size is normal. Bones and chest wall: No suspicious bony lesions. Overlying soft tissues appear unremarkable. IMPRESSION: Focal pneumonia versus atelectasis, left lower lobe. Progress films are recommended until clear. Reviewed by: Roger Rosen MD on 10/27/2023 8:01 AM PDT Approved by: Roger Rosen MD on 10/27/2023 8:01 AM PDT Station ID: [id number]
[2023-10-27 08:28] VITALS: BP 116/61; O2SAT 93
== END 2023-10-27 08:40 | disposition home or self-care (01) ==
LOC: EDUNIT# → ED 06:10
DX: J44.1 Chronic obstructive pulmonary disease with (acute) exacerbation (principal); J44.89 Other specified chronic obstructive pulmonary disease; J44.0 Chronic obstructive pulmonary disease with (acute) lower respiratory infection; J12.2 Parainfluenza virus pneumonia; F03.90 Unspecified dementia, unspecified severity, without behavioral disturbance, psychotic disturbance, mood disturbance, and anxiety
CPT/HCPCS: 36415; 71045; 80053; 83690; 83735; 85025; 87633; 94640; 94664; 99284; A9270; J8540